=== PATIENT | male | born 1990 | race Caucasian/White ===

== ENCOUNTER 2016-06-15 22:27 | Emergency (ER) | payer OTHER ==
[~2016-06-15] VITALS: Ht 185.4 cm; Wt 104.3 kg
--- NOTE | 2016-06-15 22:27 | NUR ---
Patient to ER bed 8 to gown for evaluation. Side rails up. Report given to MOIRA Villatoro.
[2016-06-15 22:30] VITALS: BP 123/66; PULSE 85; RESP 20; TEMP 98.1; O2SAT 96
--- NOTE | 2016-06-15 22:38 | NUR ---
ER at bedside examining patient.
--- NOTE | 2016-06-15 22:41 | NUR ---
pt. care assumed, pt. etoh toxication, in bed refuses to speak of the incident
[2016-06-16 00:10] VITALS: BP 118/62; PULSE 82; RESP 18; TEMP 98.4; O2SAT 99
--- NOTE | 2016-06-16 00:10 | NUR ---
Patient given written and verbal discharge instructions and verbalizes understanding. ER MD discussed with patient the results and treatment provided. Patient in stable condition. ID arm band removed. IV catheter removed intact and dressing applied, no active bleeding. Patient educated on pain management and to follow up with PMD. Pain Scale 0/10. Opportunity for questions provided and answered.
== END 2016-06-16 00:10 | disposition home or self-care (01) ==
LOC: SED 22:27
DX: F10.129 Alcohol abuse with intoxication, unspecified (principal)
CPT/HCPCS: 99281